=== PATIENT | male | born 1950 | race Caucasian/White ===

== ENCOUNTER → 2016-11-28 | Outpatient (CLI) | payer MEDICARE ==
[2016-05-15 15:00] VITALS: BP 111/55
[~2016-11-28] MED LIST: ASPI325T4 PO; ASPI81TA2 PO; ATOR20TA58 PO; CLOP75TA PO; FURO-68 PO; FURO40TA4 PO; LEVO500T8 PO; LEVO750T31 PO; LISI2.5T PO; METO25TA9 PO; ONDA8TAB9 PO; OXYC-323 PO; POTA20TA4 PO
--- NOTE | 2016-11-28 14:11 | CARD ---
APPROVED REPORT EXAM: Two-dimensional and M-mode echocardiogram with Doppler and color Doppler. Other Information Quality : Average Rhythm : NSR INDICATION Cardiomyopathy 2D DIMENSIONS RVDd2.0 (2.9-3.5cm)Left Atrium(2D)3.7 (1.6-4.0cm) IVSd0.9 (0.7-1.1cm)Aortic Root(2D)3.0 (2.0-3.7cm) LVDd5.9 (3.9-5.9cm)LVOT Diameter2.0 (1.8-2.4cm) PWd0.9 (0.7-1.1cm)LVDs5.3 (2.5-4.0cm) FS (%) 9.1 %SV33.8 ml LVEF(%)19.8 (>50%) Aortic Valve AoV Peak Luc.126.0cm/sAoV VTI29.4cm AO Peak GR.6.4mmHgLVOT Peak Luc.76.9cm/s AO Mean GR.3mmHgAVA (VMAX)1.86cm2 ARCADIO (VTI)1.90cm2 Mitral Valve MV E Bllvucsy65.9cm/sMV E Peak Gr.4mmHg MV DECEL [id number] A Dspcwqtr21.7cm/s MV E Mean Gr.2mmHgMV [id number] E/A Ratio1.3MV A Nppmrhsc342bj MVA (PHT)3.15cm2 Tricuspid Valve TR P. Zkdhtlmi759kx/sRAP JIQUCPFE0oqQc TR Peak Gr.98wiFoNTTR53rkHd Pulmonary Vein S1 Mbwmpfqw90.1cm/sD2 Ihctqyvc67.0cm/s LEFT VENTRICLE The left ventricle is normal size. There is normal left ventricular wall thickness. Left ventricle sy stolic function is severely impaired. The Ejection Fraction is 20%. There is global hypokinesis of th e left ventricle with severe hypokinesis to akinesis of the inferior and lateral box. Tissue Dopple r imaging reveals moderate left ventricular diastolic dysfunction. RIGHT VENTRICLE The right ventricle is normal size. The right ventricular systolic function is normal. ATRIA The left atrium size is normal. The right atrium size is normal. The interatrial septum is intact wit h no evidence for an atrial septal defect or patent foramen ovale as noted on 2-D or Doppler imaging. AORTIC VALVE The aortic valve is normal in structure and function. The aortic valve is trileaflet. Doppler and Col or Flow revealed no significant aortic regurgitation. There is no significant aortic valvular stenosi s. MITRAL VALVE The mitral valve leaflets are thickened. There is no mitral valve stenosis. Doppler and Color Flow re vealed mild mitral regurgitation. TRICUSPID VALVE The tricuspid valve is normal in structure and function. Doppler and Color Flow revealed mild tricusp id regurgitation. The PA pressure was estimated at 26 mmHg. There is no tricuspid valve stenosis. PULMONIC VALVE The pulmonic valve is not well visualized. Doppler and Color Flow revealed no pulmonic valvular regur gitation. There is no pulmonic valvular stenosis. GREAT VESSELS The aortic root is normal in size. Normal pulmonary venous flow (Doppler). The IVC is normal in size and collapses >50% with inspiration. PERICARDIAL EFFUSION There is no evidence of significant pericardial effusion. Critical Notification Critical Value: No <Conclusion> Left ventricle systolic function is severely impaired. The Ejection Fraction is 20%. There is global hypokinesis of the left ventricle with severe hypokinesis to akinesis of the inferior and lateral box.
== END | disposition home or self-care (01) ==
LOC: ECHO 09:26
PROVIDERS: ATTEND Internal Medicine Cardiovascular Disease
DX: I25.5 Ischemic cardiomyopathy (principal); I34.0 Nonrheumatic mitral (valve) insufficiency; I07.1 Rheumatic tricuspid insufficiency
CPT/HCPCS: 93306

== ENCOUNTER → 2016-11-28 | Outpatient (CLI) | payer MEDICARE ==
[2016-05-15 15:00] VITALS: BP 111/55
[~2016-11-28] MED LIST changes: +CONTRAST GIVEN MC PRN; +HEPARIN PF 500 UNIT/5 ML DISP.SYRIN. IV ONE; +HEPARIN for IV BOLUS 10,000 UNIT/10 ML VIAL. IV ONE; +IOHEXOL 240 MG/ML 50ML VIAL. PO ONE; +IOHEXOL 300 MG/ML 75 ML VIAL IV ONE
--- NOTE | 2016-11-28 14:48 | RAD ---
Indication: Rectal cancer, follow-up. Technique: Axial images and coronal and sagittal reformatted images are provided. Oral contrast and 75 mL of intravenous Omnipaque 300 was administered without complication. Comparison is from August 04, 2016. One or more of the following individualized dose reduction techniques were utilized for this examination: 1. Automated exposure control 2. Adjustment of the mA and/or kV according to patient size 3. Use of iterative reconstruction technique Findings: Chest: Right 2 mm intrafissural lymph node is noted. No worrisome or enlarging pulmonary nodule is identified. There is linear atelectasis. Right lower lobe groundglass nodularity following the bronchovascular bundle has resolved. There is no pleural effusion. Central airways are patent. There is atheromatous disease in the thoracic aorta without aneurysm. Coronary artery calcifications are noted. There is no hilar or mediastinal adenopathy. There are calcified left hilar lymph nodes. There is a subcarinal lymph node measuring 14 x 7 mm, stable. There are coronary artery calcifications. There are minimal degenerative changes in the thoracic spine. There is again gynecomastia. Abdomen: There is fatty infiltration of the liver without worrisome lesion. There is cholelithiasis. There are benign calcifications in the spleen. Pancreas is unremarkable. Left adrenal nodule is stable. There is atheromatous disease in the abdominal aorta without aneurysm. There is new dilation of the right renal collecting system to the level of the presacral process. There is slight delay in nephrographic phase on the right. There is no small bowel obstruction or mural thickening. Left lower quadrant colostomy is noted. No mesenteric or retroperitoneal adenopathy is apparent. Pelvis: Presacral mass has increased by at least a half centimeter in each dimension, 8.6 x 6.9 x 10.4 cm compared to 8.1 x 6.1 x 9.6 cm on prior, my measurements on each study at the same level in the same plane. Bladder wall is thickened. No definite adenopathy is apparent. There is irregularity of the anterior wall of the sacrum, could be benign remodeling or posttreatment change, although direct invasion is not excluded. No distant skeletal metastasis is apparent. Impression: Chest: 1. No evidence of metastatic disease. Abdomen/pelvis: 1. Slight increase in size of the presacral mass. 2. With this increase in size of the presacral mass, the right ureter is now at least partially obstructed.
== END | disposition home or self-care (01) ==
LOC: CT 09:33
PROVIDERS: ATTEND Internal Medicine Hematology & Oncology
DX: C20 Malignant neoplasm of rectum (principal)
CPT/HCPCS: 71260; 74177; Q9966; Q9967

== ENCOUNTER → 2017-03-21 | Outpatient (CLI) | payer MEDICARE ==
[2016-05-15 15:00] VITALS: BP 111/55
[~2017-03-21] MED LIST changes: +ASPI-630 PO; -ASPI325T4 PO; +ASPI325T8 PO; -ASPI81TA2 PO; -HEPARIN PF 500 UNIT/5 ML DISP.SYRIN. IV ONE; -HEPARIN for IV BOLUS 10,000 UNIT/10 ML VIAL. IV ONE
--- NOTE | 2017-03-21 16:11 | RAD ---
CT of the chest, abdomen and pelvis with contrast, 03/21/2017: History: Restaging colon cancer Multidetector CT imaging was performed following oral and IV administration of contrast. Comparison is made to a study from 11/28/2016. No pulmonary mass or significant infiltrate is seen. There is no evidence of pleural fluid. Several small mediastinal lymph nodes are seen without evidence of pathologic enlargement. These include a node between the innominate and proximal left common carotid artery measuring 8 mm in short axis dimension. It is unchanged since 08/04/2016. No hepatic abnormality is detected. Multiple gallstones are again noted in the gallbladder. There is no evidence of gallbladder inflammation. The pancreas is unremarkable. The spleen is of normal size. There is moderate right-sided hydronephrosis which appears to have increased slightly. The right ureter is mildly dilated down to the level of the patient's known pelvic mass. There is no evidence of ureteral obstruction on the left. There is moderate aortoiliac calcific plaquing. No periaortic or mesenteric adenopathy is seen. The large heterogeneous presacral mass is again identified. This is compatible with residual, recurrent colonic malignancy. On coronal image 33 of series #8 it measures 11.2 cm in craniocaudad extent compared to a measurement of 10.9 on the previous study. It measures 9.1 cm in width compared to a measurement of 8.5 cm on the previous study. Its AP dimension as measured on image 66 of series #4 is 9.8 cm, compared to a measurement of 9.3 cm at the same level on the previous study. There is a small nodular opacity along the posterior wall of the urinary bladder just to the right of midline as seen on image 66 of series #4. The appearance raises the possibility of tumor extension into the bladder wall. A colostomy is present in the left lower quadrant. The bowel loops are not dilated. No free fluid is evident in the abdomen or pelvis. IMPRESSION: 1. Slight interval increase in size of the large presacral mass since 11/28/2016. There is a suggestion of direct extension into the posterior bladder wall. 2. Right-sided hydronephrosis and hydroureter have progressed slightly. 3. Cholelithiasis. 4. No CT evidence of metastatic disease in the chest. PQRS Compliance Statement: One or more of the following individualized dose reduction techniques were utilized for this examination: 1. Automated exposure control 2. Adjustment of the mA and/or kV according to patient size 3. Use of iterative reconstruction technique
== END | disposition home or self-care (01) ==
LOC: CT 09:09
PROVIDERS: ATTEND Internal Medicine Hematology & Oncology
DX: C18.9 Malignant neoplasm of colon, unspecified (principal); N13.30 Unspecified hydronephrosis; K80.20 Calculus of gallbladder without cholecystitis without obstruction; N28.82 Megaloureter; M53.3 Sacrococcygeal disorders, not elsewhere classified; I70.0 Atherosclerosis of aorta; Z93.3 Colostomy status
CPT/HCPCS: 71260; 74177; Q9966; Q9967

== ENCOUNTER → 2017-06-25 | Outpatient (CLI) | payer MEDICARE ==
[2016-05-15 15:00] VITALS: BP 111/55
[~2017-06-25] MED LIST changes: +METO-239 PO; -METO25TA9 PO
--- NOTE | 2017-06-25 12:23 | RAD ---
Indication restaging colon malignancy. Axial images through the chest abdomen and pelvis were obtained. Both oral and IV contrast were administered. Approximately 75 cc of Omnipaque 300 was administered intravenously. Comparison is made to similar examination 03/21/2017. CT chest: Findings No acute parenchymal infiltrate is seen. The thoracic aorta is unremarkable. There is moderately extensive coronary artery calcification. There are few mediastinal lymph nodes similar to the previous exam. Definite pathologic mediastinal or hilar adenopathy is not seen. There is no evidence of metastatic disease to the chest. CT abdomen and pelvis: Findings Known pelvic, presacral, soft tissue mass persists and appears somewhat larger. The mass measures 11 x 7.5 x 9.6 cm whereas corresponding measurements on the previous examination were 10 x 7 x 8.4. The mass causes bilateral hydronephrosis and hydroureter which also has progressed relative to the previous exam. The liver and spleen appear unremarkable. Cholelithiasis is noted. There is a left adrenal mass measuring approximately 2 cm similar to the previous examination compatible with an adenoma. (It is also similar to a study 08/04/2016). The pancreas appears unremarkable. Colostomy is noted. IMPRESSION: Known presacral soft tissue mass has increased in size relative to the previous exam the mass. The mass causes bilateral hydronephrosis which too appears somewhat worse than previously. No evidence of metastatic disease to the chest. PQRS Compliance Statement: One or more of the following individualized dose reduction techniques were utilized for this examination: 1. Automated exposure control 2. Adjustment of the mA and/or kV according to patient size 3. Use of iterative reconstruction technique
== END | disposition home or self-care (01) ==
LOC: CT 08:41
PROVIDERS: ATTEND Internal Medicine Hematology & Oncology
DX: C18.9 Malignant neoplasm of colon, unspecified (principal); N13.30 Unspecified hydronephrosis; K80.20 Calculus of gallbladder without cholecystitis without obstruction; I10 Essential (primary) hypertension; I25.10 Atherosclerotic heart disease of native coronary artery without angina pectoris; Z79.01 Long term (current) use of anticoagulants
CPT/HCPCS: 71260; 74177; Q9966; Q9967

== ENCOUNTER → 2017-10-12 | Outpatient (CLI) | payer MEDICARE ==
[2017-10-12] MEDS: IOHEXOL 240 MG/ML 50ML VIAL. PO (11:30)
== END | disposition home or self-care (01) ==
LOC: CT 11:19
DX: C20 Malignant neoplasm of rectum (principal); I25.10 Atherosclerotic heart disease of native coronary artery without angina pectoris; N13.30 Unspecified hydronephrosis; Z93.3 Colostomy status; R19.00 Intra-abdominal and pelvic swelling, mass and lump, unspecified site
CPT/HCPCS: 71250; 74176; Q9966

== ENCOUNTER 2017-10-29 15:31 | Inpatient (IN) | payer MEDICARE ==
[2017-10-29 17:00] LABS: ADD MAN DIFF? NO
[2017-10-29 17:11] LABS: BASO % 0 % (0-3); EOS % 1 % (0-3); HEMATOCRIT 28.2 % (39.0-53.0); HEMOGLOBIN 9.1 g/dL (13.0-17.5); LYMPH % 29 % (24-48); MEAN CORPUSCULAR HEMOGLOBIN 28 pg (25-35); MEAN CORPUSCULAR HGB CONC 32 g/dL (31-37); MEAN CORPUSCULAR VOLUME 87 fL (79-100); MONO # 0.3 x10^3/uL (0.0-1.1); MONO % 8 % (0-9); NEUT # 2.1 x10^3uL (1.8-7.7); NEUT % 62 % (31-73); PLATELET COUNT 116 x10^3/uL (140-400); RED BLOOD COUNT 3.25 x10^6/uL (4.30-5.70); RED CELL DISTRIBUTION WIDTH 16.4 % (11.5-14.5); WHITE BLOOD COUNT 3.3 x10^3/uL (4.0-11.0)
[2017-10-29] MEDS: IV NORMAL SALINE 1000ML BAG 1,000 ML IV ×2 (17:11→21:39)
[2017-10-29 17:24] LABS: ALBUMIN 2.9 g/dL (3.4-5.0); ALBUMIN/GLOBULIN RATIO 0.6 (1.0-1.7); ALK PHOS 103 U/L (46-116); ALT (SGPT) 8 U/L (16-63); ANION GAP 14 (6-14); AST (SGOT) 28 U/L (15-37); BLOOD UREA NITROGEN 14 mg/dL (8-26); BUN/CREATININE RATIO 9 (6-20); CARBON DIOXIDE 22 mmol/L (21-32); CHLORIDE 103 mmol/L (98-107); CREATININE 1.5 mg/dL (0.7-1.3); GLUCOSE 95 mg/dL (70-99); MAGNESIUM 0.6 mg/dL (1.8-2.4); POTASSIUM 4.5 mmol/L (3.5-5.1); SODIUM 139 mmol/L (136-145); TOTAL BILIRUBIN 0.2 mg/dL (0.2-1.0); TOTAL PROTEIN 7.5 g/dL (6.4-8.2)
[2017-10-29 17:48] LABS: CALCIUM 5.6 mg/dL (8.5-10.1)
[2017-10-29] MEDS ORDERED: CALCIUM GLUCONATE 100 MG/ML VIAL for DOSE IN MG. IVP (19:15)
[2017-10-29] MEDS: CALCIUM GLUCONATE 1,000 MG/10 ML VIAL. IV (19:32)
[2017-10-29] MEDS: MAGNESIUM SULFATE 4GM 100 ML IV (19:33)
[2017-10-29] MEDS ORDERED: ACETAMINOPHEN 325 MG TABLET. PO (20:00)
[2017-10-29] MEDS ORDERED: ONDANSETRON PF 4 MG/2 ML VIAL. IV ×2 (20:00→20:45)
[2017-10-29] MEDS ORDERED: MORPHINE SULFATE 2 MG/ML DISP.SYRIN. IV (20:45)
[2017-10-29] MEDS ORDERED: traMADol 50 MG TABLET PO (20:45)
[2017-10-29] MEDS ORDERED: hydrALAZINE 20 MG/ML VIAL. IVP (20:45)
[2017-10-29] MEDS ORDERED: DOCUSATE SODIUM 100 MG CAPSULE. PO (20:45)
[2017-10-29 21:07] LABS: PHOSPHORUS 2.9 mg/dL (2.6-4.7)
[2017-10-29] MEDS: ENOXAPARIN 40 MG/0.4 ML SYRINGE. SQ (21:39)
[2017-10-29] MEDS: CALCIUM CHLORIDE 1,000 MG in IV DEXTROSE 5% 50 ML IV (21:39)
[2017-10-30] MEDS: IV NORMAL SALINE 1000ML BAG 1,000 ML IV ×2 (03:56→08:33)
[2017-10-30 05:53] LABS: ADD MAN DIFF? NO
[2017-10-30 06:07] LABS: BASO % 0 % (0-3); EOS % 1 % (0-3); HEMATOCRIT 26.9 % (39.0-53.0); HEMOGLOBIN 8.6 g/dL (13.0-17.5); LYMPH # 1.1 x10^3/uL (1.0-4.8); LYMPH % 34 % (24-48); MEAN CORPUSCULAR HEMOGLOBIN 28 pg (25-35); MEAN CORPUSCULAR HGB CONC 32 g/dL (31-37); MEAN CORPUSCULAR VOLUME 87 fL (79-100); MONO # 0.3 x10^3/uL (0.0-1.1); MONO % 9 % (0-9); NEUT # 1.7 x10^3uL (1.8-7.7); NEUT % 56 % (31-73); PLATELET COUNT 77 x10^3/uL (140-400); RED BLOOD COUNT 3.09 x10^6/uL (4.30-5.70); RED CELL DISTRIBUTION WIDTH 16.1 % (11.5-14.5); WHITE BLOOD COUNT 3.1 x10^3/uL (4.0-11.0)
[2017-10-30 06:29] LABS: ANION GAP 11 (6-14); BLOOD UREA NITROGEN 14 mg/dL (8-26); CALCIUM 6.5 mg/dL (8.5-10.1); CARBON DIOXIDE 21 mmol/L (21-32); CHLORIDE 108 mmol/L (98-107); CREATININE 1.5 mg/dL (0.7-1.3); GLUCOSE 86 mg/dL (70-99); MAGNESIUM 1.3 mg/dL (1.8-2.4); SODIUM 140 mmol/L (136-145)
[2017-10-30 06:32] LABS: POTASSIUM 5.7 mmol/L (3.5-5.1)
[2017-10-30] MEDS: POTASSIUM CHLORIDE 20 MEQ TABLET.ER. PO (08:00)
[2017-10-30] MEDS: LISINOPRIL 2.5 MG TABLET PO (08:26)
[2017-10-30] MEDS: CLOPIDOGREL BISULFATE 75 MG TABLET PO (08:27)
[2017-10-30] MEDS: ATORVASTATIN CALCIUM 20 MG TABLET PO (08:27)
[2017-10-30] MEDS: ASPIRIN 325 MG TABLET PO (08:27)
[2017-10-30] MEDS: FUROSEMIDE 40 MG TABLET. PO (08:28)
[2017-10-30] MEDS: FLU VACC QS2017-18 (36MOS+)/PF 0.5 ML SYRINGE. VAX IM (08:31)
[2017-10-30] MEDS: METOPROLOL SUCC 24HR ER 25 MG TAB.ER.24H. PO (08:36)
[2017-10-30] MEDS ORDERED: INFLUENZA VAX SCREEN BY RX. MC (09:00)
[2017-10-30] MEDS: MAGNESIUM SULFATE 2GM 50 ML IV (13:09)
[2017-10-30] MEDS: CALCIUM CHLORIDE 1,000 MG in IV DEXTROSE 5% 50 ML IV (15:15)
[2017-10-30] MEDS: ACETAMINOPHEN 325 MG TABLET. PO (16:08)
[2017-10-30] MEDS: ENOXAPARIN 40 MG/0.4 ML SYRINGE. SQ (20:53)
[2017-10-31 05:25] LABS: ADD MAN DIFF? NO
[2017-10-31 05:35] LABS: BASO % 0 % (0-3); EOS # 0.1 x10^3/uL (0.0-0.7); EOS % 2 % (0-3); HEMATOCRIT 28.5 % (39.0-53.0); HEMOGLOBIN 9.1 g/dL (13.0-17.5); LYMPH # 0.9 x10^3/uL (1.0-4.8); LYMPH % 29 % (24-48); MEAN CORPUSCULAR HEMOGLOBIN 28 pg (25-35); MEAN CORPUSCULAR HGB CONC 32 g/dL (31-37); MEAN CORPUSCULAR VOLUME 87 fL (79-100); MONO # 0.2 x10^3/uL (0.0-1.1); MONO % 8 % (0-9); NEUT # 1.8 x10^3uL (1.8-7.7); NEUT % 61 % (31-73); PLATELET COUNT 98 x10^3/uL (140-400); RED BLOOD COUNT 3.28 x10^6/uL (4.30-5.70); RED CELL DISTRIBUTION WIDTH 16.2 % (11.5-14.5); WHITE BLOOD COUNT 2.9 x10^3/uL (4.0-11.0)
[2017-10-31 06:17] LABS: MAGNESIUM 1.3 mg/dL (1.8-2.4)
[2017-10-31] MEDS: FUROSEMIDE 40 MG TABLET. PO (08:35)
[2017-10-31] MEDS: ATORVASTATIN CALCIUM 20 MG TABLET PO (08:36)
[2017-10-31] MEDS: METOPROLOL SUCC 24HR ER 25 MG TAB.ER.24H. PO ×2 (08:36→12:35)
[2017-10-31] MEDS: ASPIRIN 325 MG TABLET PO (08:36)
[2017-10-31] MEDS: CLOPIDOGREL BISULFATE 75 MG TABLET PO (08:36)
[2017-10-31] MEDS: LISINOPRIL 2.5 MG TABLET PO (08:36)
[2017-10-31 10:46] LABS: ANION GAP 14 (6-14); BLOOD UREA NITROGEN 15 mg/dL (8-26); CALCIUM 6.7 mg/dL (8.5-10.1); CARBON DIOXIDE 22 mmol/L (21-32); CHLORIDE 106 mmol/L (98-107); CREATININE 1.4 mg/dL (0.7-1.3); GFR 50.9; GLUCOSE 92 mg/dL (70-99); POTASSIUM 4.6 mmol/L (3.5-5.1); SODIUM 142 mmol/L (136-145)
[2017-10-31] MEDS: ASPIRIN ENTERIC COATED 81 MG TABLET.DR. PO (12:35)
[2017-10-31] MEDS: MAGNESIUM SULFATE 2GM 50 ML IV (12:42)
[2017-10-31] MEDS: CALCIUM CHLORIDE 1,000 MG in IV DEXTROSE 5% 50 ML IV (15:35)
[2017-10-31] MEDS: ENOXAPARIN 40 MG/0.4 ML SYRINGE. SQ (20:49)
[2017-11-01 05:07] LABS: ADD MAN DIFF? NO
[2017-11-01 05:27] LABS: BASO % 0 % (0-3); EOS % 1 % (0-3); HEMATOCRIT 26.9 % (39.0-53.0); HEMOGLOBIN 8.7 g/dL (13.0-17.5); LYMPH # 0.8 x10^3/uL (1.0-4.8); LYMPH % 21 % (24-48); MEAN CORPUSCULAR HEMOGLOBIN 28 pg (25-35); MEAN CORPUSCULAR HGB CONC 32 g/dL (31-37); MEAN CORPUSCULAR VOLUME 85 fL (79-100); MONO # 0.3 x10^3/uL (0.0-1.1); MONO % 8 % (0-9); NEUT # 2.6 x10^3uL (1.8-7.7); NEUT % 70 % (31-73); PLATELET COUNT 99 x10^3/uL (140-400); RED BLOOD COUNT 3.15 x10^6/uL (4.30-5.70); RED CELL DISTRIBUTION WIDTH 16.2 % (11.5-14.5); WHITE BLOOD COUNT 3.7 x10^3/uL (4.0-11.0)
[2017-11-01 05:49] LABS: ANION GAP 13 (6-14); BLOOD UREA NITROGEN 13 mg/dL (8-26); CALCIUM 7.2 mg/dL (8.5-10.1); CARBON DIOXIDE 22 mmol/L (21-32); CHLORIDE 106 mmol/L (98-107); CREATININE 1.3 mg/dL (0.7-1.3); GFR 55.4; GLUCOSE 108 mg/dL (70-99); MAGNESIUM 1.2 mg/dL (1.8-2.4); POTASSIUM 3.9 mmol/L (3.5-5.1); SODIUM 141 mmol/L (136-145)
== END 2017-11-01 10:51 | disposition home or self-care (01) | DRG 640 ==
LOC: ER 15:31 → 6 SOUTH 19:02
DX: E83.51 Hypocalcemia (principal); D61.810 Antineoplastic chemotherapy induced pancytopenia; E44.0 Moderate protein-calorie malnutrition; N13.30 Unspecified hydronephrosis; I13.0 Hypertensive heart and chronic kidney disease with heart failure and stage 1 through stage 4 chronic kidney disease, or unspecified chronic kidney disease; I50.9 Heart failure, unspecified; N18.3 Chronic kidney disease, stage 3 (moderate); G62.9 Polyneuropathy, unspecified; C20 Malignant neoplasm of rectum; E83.42 Hypomagnesemia; I25.5 Ischemic cardiomyopathy; F41.9 Anxiety disorder, unspecified; F32.9 Major depressive disorder, single episode, unspecified; I25.10 Atherosclerotic heart disease of native coronary artery without angina pectoris; E78.5 Hyperlipidemia, unspecified; E87.5 Hyperkalemia; T45.1X5A Adverse effect of antineoplastic and immunosuppressive drugs, initial encounter; I25.2 Old myocardial infarction; Z90.49 Acquired absence of other specified parts of digestive tract; Z87.891 Personal history of nicotine dependence; Z88.0 Allergy status to penicillin; Z88.8 Allergy status to other drugs, medicaments and biological substances; Z93.3 Colostomy status; Z95.5 Presence of coronary angioplasty implant and graft; Y92.89 Other specified places as the place of occurrence of the external cause; Z68.21 Body mass index [BMI] 21.0-21.9, adult
CPT/HCPCS: 36415; 80048; 80053; 83735; 84100; 85025; 90686; 93005; 93306; 96361; 96365; 96375; 97110-GP; 97161-GP; 99285; 99285-25; J0610; J1650; J3475; J7030

== ENCOUNTER 2018-01-07 11:43 | Inpatient (IN) | payer MEDICARE ==
[2018-01-07] MEDS ORDERED: IV NORMAL SALINE 1000ML BAG 1,000 ML IV (12:38)
[2018-01-07 13:13] LABS: ADD MAN DIFF? NO
[2018-01-07] MEDS: IV NORMAL SALINE 1000ML BAG 1,000 ML IV ×3 (13:18→21:08)
[2018-01-07 13:19] LABS: BASO % 0 % (0-3); EOS # 0.2 x10^3/uL (0.0-0.7); EOS % 2 % (0-3); LYMPH # 1.2 x10^3/uL (1.0-4.8); LYMPH % 13 % (24-48); MEAN CORPUSCULAR HEMOGLOBIN 30 pg (25-35); MEAN CORPUSCULAR HGB CONC 34 g/dL (31-37); MEAN CORPUSCULAR VOLUME 87 fL (79-100); MONO # 0.6 x10^3/uL (0.0-1.1); MONO % 7 % (0-9); NEUT # 7.3 x10^3uL (1.8-7.7); NEUT % 78 % (31-73); PLATELET COUNT 510 x10^3/uL (140-400); RED BLOOD COUNT 2.32 x10^6/uL (4.30-5.70); RED CELL DISTRIBUTION WIDTH 15.8 % (11.5-14.5); WHITE BLOOD COUNT 9.3 x10^3/uL (4.0-11.0)
[2018-01-07 13:24] LABS: HEMOGLOBIN 6.8 g/dL (13.0-17.5)
[2018-01-07 13:25] LABS: ANION GAP 10 (6-14); BLOOD UREA NITROGEN 16 mg/dL (8-26); BUN/CREATININE RATIO 8 (6-20); CALCIUM 8.7 mg/dL (8.5-10.1); CARBON DIOXIDE 31 mmol/L (21-32); CHLORIDE 100 mmol/L (98-107); CREATININE 1.9 mg/dL (0.7-1.3); GFR 35.8; GLUCOSE 115 mg/dL (70-99); HEMATOCRIT 20.2 % (39.0-53.0); POTASSIUM 3.7 mmol/L (3.5-5.1); SODIUM 141 mmol/L (136-145)
[2018-01-07 13:31] LABS: ALBUMIN 2.7 g/dL (3.4-5.0); ALBUMIN/GLOBULIN RATIO 0.6 (1.0-1.7); ALK PHOS 124 U/L (46-116); ALT (SGPT) 16 U/L (16-63); AST (SGOT) 27 U/L (15-37); TOTAL BILIRUBIN 0.4 mg/dL (0.2-1.0); TOTAL PROTEIN 6.9 g/dL (6.4-8.2)
[2018-01-07 13:32] LABS: TROPONINI < 0.017 ng/mL (0.000-0.055)
[2018-01-07 13:37] LABS: INR 1.3 (0.8-1.1)
[2018-01-07 13:38] LABS: PARTIAL THROMBOPLASTIN TIME 46 SEC (24-38)
[2018-01-07 13:39] LABS: THYROID STIM HORMONE (TSH) 0.906 uIU/mL (0.358-3.74)
[2018-01-07 13:42] LABS: CLARITY,URINE TURBID; COLOR,URINE RED; GLUCOSE,URINE NEGATIVE (NEG); PH,URINE 5.5; PROTEIN,URINE >=300 mg/dL (NEG-TRACE)
[2018-01-07 13:53] LABS: BILIRUBIN,URINE NEGATIVE (NEG); NITRITE,URINE NEGATIVE (NEG); UROBILINOGEN,URINE 0.2 mg/dL (0.2 mg/dL)
[2018-01-07 14:03] LABS: BACTERIA,URINE FEW /HPF (0-FEW); RBC,URINE TNTC /HPF (0-2); WBC,URINE 20-40 /HPF (0-4)
[2018-01-07 21:22] LABS: IMMEDIATE SPIN CROSSMATCH 1 1
[2018-01-08] MEDS: IV NORMAL SALINE 1000ML BAG 1,000 ML IV (05:08)
[2018-01-08 05:12] LABS: ADD MAN DIFF? NO
[2018-01-08 05:18] LABS: BASO % 0 % (0-3); EOS # 0.2 x10^3/uL (0.0-0.7); EOS % 3 % (0-3); HEMATOCRIT 21.3 % (39.0-53.0); HEMOGLOBIN 7.1 g/dL (13.0-17.5); LYMPH # 1.1 x10^3/uL (1.0-4.8); LYMPH % 12 % (24-48); MEAN CORPUSCULAR HEMOGLOBIN 29 pg (25-35); MEAN CORPUSCULAR HGB CONC 34 g/dL (31-37); MEAN CORPUSCULAR VOLUME 87 fL (79-100); MONO # 0.6 x10^3/uL (0.0-1.1); MONO % 7 % (0-9); NEUT # 7.1 x10^3uL (1.8-7.7); NEUT % 78 % (31-73); PLATELET COUNT 394 x10^3/uL (140-400); RED BLOOD COUNT 2.43 x10^6/uL (4.30-5.70); RED CELL DISTRIBUTION WIDTH 15.2 % (11.5-14.5); WHITE BLOOD COUNT 9.1 x10^3/uL (4.0-11.0)
[2018-01-08 05:42] LABS: ANION GAP 6 (6-14); BLOOD UREA NITROGEN 16 mg/dL (8-26); CALCIUM 8.3 mg/dL (8.5-10.1); CARBON DIOXIDE 29 mmol/L (21-32); CHLORIDE 104 mmol/L (98-107); CREATININE 1.8 mg/dL (0.7-1.3); GFR 38.1; GLUCOSE 95 mg/dL (70-99); POTASSIUM 3.7 mmol/L (3.5-5.1); SODIUM 139 mmol/L (136-145)
[2018-01-08] MEDS: GABAPENTIN 300 MG CAPSULE. PO ×3 (07:47→21:13)
[2018-01-08] MEDS: MAGNESIUM OXIDE 400 MG TABLET PO (10:00)
[2018-01-08] MEDS: ATORVASTATIN CALCIUM 20 MG TABLET PO (10:00)
[2018-01-08] MEDS: METOPROLOL SUCC 24HR ER 25 MG TAB.ER.24H. PO (10:00)
[2018-01-08] MEDS: ONDANSETRON ODT 4 MG TAB.RAPDIS. PO ×3 (10:00→21:14)
[2018-01-08] MEDS ORDERED: LIDOCAINE 2% JELLY 6ML IN APPLICATOR. (14:02)
[2018-01-08] MEDS ORDERED: LIDOCAINE 2% PF Vial for OR 5 ML VIAL. (14:24)
[2018-01-08] MEDS ORDERED: ONDANSETRON PF 4 MG/2 ML VIAL. (14:24)
[2018-01-08] MEDS ORDERED: FAMOTIDINE 20 MG/2 ML VIAL (14:24)
[2018-01-08] MEDS ORDERED: PROPOFOL 20 ML IV (14:24)
[2018-01-08] MEDS ORDERED: MIDAZOLAM HCL/PF 2 MG/2 ML VIAL. (14:24)
[2018-01-08] MEDS ORDERED: fentaNYL PF VIAL 100 MCG/2 ML VIAL ×3 (14:24→17:06)
[2018-01-08] MEDS ORDERED: DEXAMETHASONE SOD PHOS 20 MG/5 ML VIAL. (14:24)
[2018-01-08] MEDS ORDERED: PHENYLEPHRINE in 0.9% NACL PF 1 MG/10 ML SYRINGE. IV (15:25)
[2018-01-08] MEDS ORDERED: SEVOFLURANE 61 TO 120 MINUTES. IH (16:37)
[2018-01-08] MEDS: IV RINGERS,LACTATED 1000ML 1,000 ML IV (17:06)
[2018-01-08] MEDS: fentaNYL PF VIAL 100 MCG/2 ML VIAL IV (17:12)
[2018-01-08] MEDS: LIDOCAINE 2% JELLY 6ML IN APPLICATOR. (17:14)
[2018-01-08] MEDS ORDERED: HYDROmorphone 2 MG/ML VIAL IV (17:15)
[2018-01-08] MEDS ORDERED: LIDOCAINE 1% PF 2 ML VIAL. ID (17:15)
[2018-01-08] MEDS ORDERED: fentaNYL PF VIAL 100 MCG/2 ML VIAL IV (17:15)
[2018-01-08] MEDS ORDERED: MORPHINE SULFATE 4 MG/ML DISP.SYRIN. IV (17:15)
[2018-01-08] MEDS ORDERED: PROCHLORPERAZINE 10 MG/2 ML VIAL. IV (17:15)
[2018-01-08] MEDS: IOHEXOL 240 MG/ML 50ML VIAL. IT (18:00)
[2018-01-08] MEDS: OXYBUTYNIN CHLORIDE 5 MG TABLET PO (18:42)
[2018-01-08] MEDS: ACETAMINOPHEN 500 MG TABLET PO (21:14)
[2018-01-08 23:13] LABS: C DIFF BY PCR Negative (Negative)
[2018-01-09] MEDS: OXYBUTYNIN CHLORIDE 5 MG TABLET PO (05:00)
[2018-01-09] MEDS: ONDANSETRON ODT 4 MG TAB.RAPDIS. PO ×3 (05:00→22:09)
[2018-01-09 05:33] LABS: HEMATOCRIT 23.2 % (39.0-53.0); HEMOGLOBIN 7.8 g/dL (13.0-17.5); MEAN CORPUSCULAR HEMOGLOBIN 30 pg (25-35); MEAN CORPUSCULAR HGB CONC 34 g/dL (31-37); MEAN CORPUSCULAR VOLUME 88 fL (79-100); PLATELET COUNT 399 x10^3/uL (140-400); RED BLOOD COUNT 2.62 x10^6/uL (4.30-5.70); WHITE BLOOD COUNT 11.3 x10^3/uL (4.0-11.0)
[2018-01-09 06:58] LABS: ALBUMIN 2.1 g/dL (3.4-5.0); ALBUMIN/GLOBULIN RATIO 0.5 (1.0-1.7); ALK PHOS 100 U/L (46-116); ALT (SGPT) 12 U/L (16-63); ANION GAP 12 (6-14); AST (SGOT) 22 U/L (15-37); BLOOD UREA NITROGEN 17 mg/dL (8-26); BUN/CREATININE RATIO 9 (6-20); CALCIUM 8.3 mg/dL (8.5-10.1); CARBON DIOXIDE 25 mmol/L (21-32); CHLORIDE 105 mmol/L (98-107); CREATININE 1.9 mg/dL (0.7-1.3); GFR 35.8; GLUCOSE 119 mg/dL (70-99); SODIUM 142 mmol/L (136-145); TOTAL BILIRUBIN 0.4 mg/dL (0.2-1.0); TOTAL PROTEIN 6.4 g/dL (6.4-8.2)
[2018-01-09] MEDS: ATORVASTATIN CALCIUM 20 MG TABLET PO (08:32)
[2018-01-09] MEDS: MAGNESIUM OXIDE 400 MG TABLET PO (08:32)
[2018-01-09] MEDS: METOPROLOL SUCC 24HR ER 25 MG TAB.ER.24H. PO (08:32)
[2018-01-09] MEDS: GABAPENTIN 300 MG CAPSULE. PO ×3 (08:32→21:00)
[2018-01-09] MEDS ORDERED: IOHEXOL 300 MG/ML 100ML VIAL. (12:50)
[2018-01-09] MEDS ORDERED: LIDOCAINE WITH 8.4% SOD BICARB 3 ML DISP.SYRIN. ×2 (12:50)
[2018-01-09] MEDS ORDERED: MIDAZOLAM HCL/PF 2 MG/2 ML VIAL. (13:27)
[2018-01-09] MEDS ORDERED: fentaNYL PF VIAL 100 MCG/2 ML VIAL (13:27)
[2018-01-09] MEDS: IOHEXOL 300 MG/ML 100ML VIAL. IART (14:17)
[2018-01-09] MEDS: LIDOCAINE WITH 8.4% SOD BICARB 3 ML DISP.SYRIN. IJ (14:17)
[2018-01-09] MEDS: fentaNYL PF VIAL 100 MCG/2 ML VIAL IV (14:18)
[2018-01-09] MEDS: MIDAZOLAM HCL/PF 2 MG/2 ML VIAL. IV (14:18)
[2018-01-09] MEDS: ACETAMINOPHEN 500 MG TABLET PO (14:48)
[2018-01-09] MEDS: CEFEPIME HCL IV Push 1 GM VIAL. IVP ×2 (14:49→21:00)
[2018-01-09] MEDS ORDERED: HYDROcodone/APAP 7.5/325MG 1 TAB TABLET PO (15:30)
[2018-01-09] MEDS ORDERED: CEFEPIME HCL 1 GM in IV DEXTROSE 5% 50 ML IV (21:00)
[2018-01-09] MEDS: HYDROcodone/APAP 7.5/325MG 1 TAB TABLET PO (22:58)
[2018-01-10 05:20] LABS: HEMATOCRIT 21.4 % (39.0-53.0); HEMOGLOBIN 7.1 g/dL (13.0-17.5); MEAN CORPUSCULAR HEMOGLOBIN 29 pg (25-35); MEAN CORPUSCULAR HGB CONC 33 g/dL (31-37); MEAN CORPUSCULAR VOLUME 88 fL (79-100); PLATELET COUNT 367 x10^3/uL (140-400); RED BLOOD COUNT 2.44 x10^6/uL (4.30-5.70); RED CELL DISTRIBUTION WIDTH 15.2 % (11.5-14.5); WHITE BLOOD COUNT 9.5 x10^3/uL (4.0-11.0)
[2018-01-10 05:46] LABS: ALBUMIN/GLOBULIN RATIO 0.5 (1.0-1.7); ALK PHOS 92 U/L (46-116); ALT (SGPT) 11 U/L (16-63); ANION GAP 8 (6-14); AST (SGOT) 22 U/L (15-37); BLOOD UREA NITROGEN 25 mg/dL (8-26); BUN/CREATININE RATIO 14 (6-20); CALCIUM 8.1 mg/dL (8.5-10.1); CARBON DIOXIDE 28 mmol/L (21-32); CHLORIDE 104 mmol/L (98-107); CREATININE 1.8 mg/dL (0.7-1.3); GFR 38.1; GLUCOSE 105 mg/dL (70-99); POTASSIUM 4.1 mmol/L (3.5-5.1); SODIUM 140 mmol/L (136-145); TOTAL BILIRUBIN 0.2 mg/dL (0.2-1.0); TOTAL PROTEIN 5.7 g/dL (6.4-8.2)
[2018-01-10] MEDS: ONDANSETRON ODT 4 MG TAB.RAPDIS. PO ×3 (06:10→21:56)
[2018-01-10] MEDS: METOPROLOL SUCC 24HR ER 25 MG TAB.ER.24H. PO ×2 (08:09→08:39)
[2018-01-10] MEDS: ATORVASTATIN CALCIUM 20 MG TABLET PO (08:39)
[2018-01-10] MEDS: MAGNESIUM OXIDE 400 MG TABLET PO (08:39)
[2018-01-10] MEDS: GABAPENTIN 300 MG CAPSULE. PO ×3 (08:39→20:31)
[2018-01-10] MEDS: CEFEPIME HCL IV Push 1 GM VIAL. IVP ×2 (08:40→20:32)
[2018-01-10] MEDS: HYDROcodone/APAP 7.5/325MG 1 TAB TABLET PO ×2 (14:00→20:46)
[2018-01-10 17:40] LABS: RETIC COUNT 0.8 % (0.5-2.5)
[2018-01-10 18:00] LABS: % SAT IRON 9 % (15-34); IRON,SERUM 15 ug/dL (65-175)
[2018-01-10 18:13] LABS: FERRITIN 155 ng/mL (26-388)
[2018-01-10 20:45] LABS: VITAMIN-B12 548 pg/mL (247-911)
[2018-01-10 20:45] LABS: FOLATE 2.33 ng/ml (3.2-20.0)
[2018-01-11] MEDS: ONDANSETRON ODT 4 MG TAB.RAPDIS. PO ×3 (06:16→21:13)
[2018-01-11] MEDS: MAGNESIUM OXIDE 400 MG TABLET PO (08:01)
[2018-01-11] MEDS: GABAPENTIN 300 MG CAPSULE. PO ×3 (08:02→21:12)
[2018-01-11] MEDS: METOPROLOL SUCC 24HR ER 25 MG TAB.ER.24H. PO (08:02)
[2018-01-11] MEDS: ATORVASTATIN CALCIUM 20 MG TABLET PO (08:02)
[2018-01-11] MEDS: CEFEPIME HCL IV Push 1 GM VIAL. IVP ×2 (08:03→21:12)
[2018-01-11] MEDS: FOLIC ACID 1 MG TABLET. PO (09:28)
[2018-01-11] MEDS: IRON SUCROSE COMPLEX 500 MG in IV NORMAL SALINE 250ML 250 ML IV (09:29)
[2018-01-11] MEDS ORDERED: MORPHINE SULFATE 4 MG/ML DISP.SYRIN. IV (11:30)
[2018-01-11] MEDS ORDERED: ONDANSETRON PF 4 MG/2 ML VIAL. IV (11:30)
[2018-01-11] MEDS ORDERED: ONDANSETRON ODT 4 MG TAB.RAPDIS. PO (11:30)
[2018-01-11] MEDS: HYDROcodone/APAP 7.5/325MG 1 TAB TABLET PO (21:23)
[2018-01-12 04:29] LABS: HEMATOCRIT 22.6 % (39.0-53.0); HEMOGLOBIN 7.7 g/dL (13.0-17.5); MEAN CORPUSCULAR HGB CONC 34 g/dL (31-37)
[2018-01-12] MEDS: ONDANSETRON ODT 4 MG TAB.RAPDIS. PO ×3 (05:21→20:25)
[2018-01-12] MEDS: ATORVASTATIN CALCIUM 20 MG TABLET PO (09:10)
[2018-01-12] MEDS: MAGNESIUM OXIDE 400 MG TABLET PO (09:10)
[2018-01-12] MEDS: GABAPENTIN 300 MG CAPSULE. PO ×3 (09:11→20:25)
[2018-01-12] MEDS: METOPROLOL SUCC 24HR ER 25 MG TAB.ER.24H. PO (09:11)
[2018-01-12] MEDS: FOLIC ACID 1 MG TABLET. PO (09:11)
[2018-01-12] MEDS: CEFEPIME HCL IV Push 1 GM VIAL. IVP ×2 (09:14→20:25)
[2018-01-12 11:13] LABS: CEA 8.7 ng/mL (0.0-4.7)
[2018-01-12] MEDS: HYDROcodone/APAP 7.5/325MG 1 TAB TABLET PO (20:29)
[2018-01-13] MEDS: ONDANSETRON ODT 4 MG TAB.RAPDIS. PO ×4 (05:45→20:32)
[2018-01-13 06:28] LABS: ANION GAP 4 (6-14); BLOOD UREA NITROGEN 19 mg/dL (8-26); CALCIUM 7.6 mg/dL (8.5-10.1); CARBON DIOXIDE 31 mmol/L (21-32); CHLORIDE 103 mmol/L (98-107); CREATININE 1.5 mg/dL (0.7-1.3); GLUCOSE 97 mg/dL (70-99); POTASSIUM 3.8 mmol/L (3.5-5.1); SODIUM 138 mmol/L (136-145)
[2018-01-13] MEDS: ATORVASTATIN CALCIUM 20 MG TABLET PO (08:15)
[2018-01-13] MEDS: MAGNESIUM OXIDE 400 MG TABLET PO (08:15)
[2018-01-13] MEDS: FOLIC ACID 1 MG TABLET. PO (08:15)
[2018-01-13] MEDS: GABAPENTIN 300 MG CAPSULE. PO ×3 (08:15→20:32)
[2018-01-13] MEDS: METOPROLOL SUCC 24HR ER 25 MG TAB.ER.24H. PO (08:15)
[2018-01-13] MEDS: CEFEPIME HCL IV Push 1 GM VIAL. IVP (08:42)
[2018-01-13] MEDS: CEFPODOXIME PROXETIL 100 MG TABLET. PO (20:32)
[2018-01-14 04:32] LABS: HEMATOCRIT 22.3 % (39.0-53.0); HEMOGLOBIN 7.7 g/dL (13.0-17.5); MEAN CORPUSCULAR HEMOGLOBIN 30 pg (25-35); MEAN CORPUSCULAR HGB CONC 35 g/dL (31-37); MEAN CORPUSCULAR VOLUME 88 fL (79-100); PLATELET COUNT 386 x10^3/uL (140-400); RED BLOOD COUNT 2.55 x10^6/uL (4.30-5.70); RED CELL DISTRIBUTION WIDTH 15.4 % (11.5-14.5); WHITE BLOOD COUNT 8.3 x10^3/uL (4.0-11.0)
[2018-01-14 04:45] LABS: CALCIUM 7.6 mg/dL (8.5-10.1); GLUCOSE 113 mg/dL (70-99)
[2018-01-14 04:46] LABS: ANION GAP 6 (6-14); BLOOD UREA NITROGEN 15 mg/dL (8-26); CARBON DIOXIDE 31 mmol/L (21-32); CHLORIDE 104 mmol/L (98-107); CREATININE 1.2 mg/dL (0.7-1.3); GFR 60.8; POTASSIUM 3.7 mmol/L (3.5-5.1); SODIUM 141 mmol/L (136-145)
[2018-01-14] MEDS: ONDANSETRON ODT 4 MG TAB.RAPDIS. PO ×2 (05:40→14:00)
[2018-01-14] MEDS: CEFPODOXIME PROXETIL 100 MG TABLET. PO (08:20)
[2018-01-14] MEDS: MAGNESIUM OXIDE 400 MG TABLET PO (08:20)
[2018-01-14] MEDS: FOLIC ACID 1 MG TABLET. PO (08:21)
[2018-01-14] MEDS: METOPROLOL SUCC 24HR ER 25 MG TAB.ER.24H. PO (08:21)
[2018-01-14] MEDS: ATORVASTATIN CALCIUM 20 MG TABLET PO (08:21)
[2018-01-14] MEDS: GABAPENTIN 300 MG CAPSULE. PO ×2 (08:22→13:50)
== END 2018-01-14 14:00 | disposition home or self-care (01) | DRG 669 ==
LOC: ER 11:43 → 5 NORTH 14:14
PROVIDERS: Internal Medicine
PROC: 0TBB8ZX Excision of Bladder, Via Natural or Artificial Opening Endoscopic, Diagnostic (ICD-10-PCS; principal; 2018-01-08 15:00)
PROC: 0T5B8ZZ Destruction of Bladder, Via Natural or Artificial Opening Endoscopic (ICD-10-PCS; 2018-01-08 15:00)
PROC: 0TCB8ZZ Extirpation of Matter from Bladder, Via Natural or Artificial Opening Endoscopic (ICD-10-PCS; 2018-01-08 15:00)
PROC: 0T9430Z Drainage of Left Kidney Pelvis with Drainage Device, Percutaneous Approach (ICD-10-PCS; 2018-01-08 15:10)
PROC: 0T9030Z Drainage of Right Kidney with Drainage Device, Percutaneous Approach (ICD-10-PCS; 2018-01-08 15:10)
PROC: 30233N1 Transfusion of Nonautologous Red Blood Cells into Peripheral Vein, Percutaneous Approach (ICD-10-PCS; 2018-01-08 15:10)
DX: N30.41 Irradiation cystitis with hematuria (principal); C20 Malignant neoplasm of rectum; E44.0 Moderate protein-calorie malnutrition; I13.0 Hypertensive heart and chronic kidney disease with heart failure and stage 1 through stage 4 chronic kidney disease, or unspecified chronic kidney disease; N13.30 Unspecified hydronephrosis; G62.9 Polyneuropathy, unspecified; I50.9 Heart failure, unspecified; I42.9 Cardiomyopathy, unspecified; D49.4 Neoplasm of unspecified behavior of bladder; D64.9 Anemia, unspecified; D72.829 Elevated white blood cell count, unspecified; E61.1 Iron deficiency; E78.5 Hyperlipidemia, unspecified; I25.10 Atherosclerotic heart disease of native coronary artery without angina pectoris; I25.2 Old myocardial infarction; N18.3 Chronic kidney disease, stage 3 (moderate); Z79.82 Long term (current) use of aspirin; Z87.891 Personal history of nicotine dependence; Z90.49 Acquired absence of other specified parts of digestive tract; Z92.21 Personal history of antineoplastic chemotherapy; Z93.3 Colostomy status; Z93.6 Other artificial openings of urinary tract status; Z95.5 Presence of coronary angioplasty implant and graft; F32.9 Major depressive disorder, single episode, unspecified; F41.9 Anxiety disorder, unspecified; Z88.0 Allergy status to penicillin; Z88.8 Allergy status to other drugs, medicaments and biological substances
CPT/HCPCS: 36415; 50432; 71046; 74176; 76942; 80048; 80053; 81001; 82378; 82607; 82728; 82746; 83540; 83550; 84443; 84484; 85014; 85018; 85025; 85027; 85045; 85610; 85730; 86850; 86900; 86901; 86920; 87071; 87075; 87086; 87205; 87324; 93005; 96360; 97116-GP; 97161-GP; 97166-GO; 99152; 99153; 99291; 99291-25; A7015; C1713; C1729; C1892; J0692; J1100; J1756; J1956; J2250; J2370; J2405; J2704; J3010; J3490; J7030; J7050; P9016; Q0162; Q9966; Q9967; S0028

== ENCOUNTER 2018-01-29 08:36 | Outpatient (CLI) | payer MEDICARE ==
[2018-01-29] MEDS ORDERED: LIDOCAINE WITH 8.4% SOD BICARB 3 ML DISP.SYRIN. (09:36)
[2018-01-29] MEDS ORDERED: IOHEXOL 300 MG/ML 100ML VIAL. (09:36)
[2018-01-29 09:39] LABS: ADD MAN DIFF? NO
[2018-01-29 09:43] LABS: BASO % 0 % (0-3); EOS # 0.2 x10^3/uL (0.0-0.7); EOS % 5 % (0-3); HEMATOCRIT 25.2 % (39.0-53.0); HEMOGLOBIN 8.5 g/dL (13.0-17.5); LYMPH # 1.1 x10^3/uL (1.0-4.8); LYMPH % 26 % (24-48); MEAN CORPUSCULAR HEMOGLOBIN 30 pg (25-35); MEAN CORPUSCULAR HGB CONC 34 g/dL (31-37); MEAN CORPUSCULAR VOLUME 88 fL (79-100); MONO # 0.1 x10^3/uL (0.0-1.1); MONO % 3 % (0-9); NEUT # 2.7 x10^3uL (1.8-7.7); NEUT % 65 % (31-73); PLATELET COUNT 199 x10^3/uL (140-400); RED BLOOD COUNT 2.87 x10^6/uL (4.30-5.70); RED CELL DISTRIBUTION WIDTH 15.6 % (11.5-14.5); WHITE BLOOD COUNT 4.1 x10^3/uL (4.0-11.0)
[2018-01-29] MEDS ORDERED: CLINDAMYCIN 900MG PREMIX 50 ML IV (09:48)
[2018-01-29] MEDS ORDERED: MIDAZOLAM HCL/PF 2 MG/2 ML VIAL. (09:48)
[2018-01-29] MEDS ORDERED: fentaNYL PF VIAL 100 MCG/2 ML VIAL ×2 (09:48→11:49)
[2018-01-29 09:58] LABS: INR 1.3 (0.8-1.1); PARTIAL THROMBOPLASTIN TIME 32 SEC (24-38); PROTHROMBIN TIME PATIENT 15.2 SEC (11.7-14.0)
[2018-01-29] MEDS ORDERED: CONTRAST GIVEN MC (10:15)
[2018-01-29] MEDS: LIDOCAINE WITH 8.4% SOD BICARB 3 ML DISP.SYRIN. IJ (11:58)
[2018-01-29] MEDS: CLINDAMYCIN 900MG PREMIX 50 ML IV (11:58)
[2018-01-29] MEDS: IOHEXOL 300 MG/ML 100ML VIAL. IART (11:58)
[2018-01-29] MEDS: fentaNYL PF VIAL 100 MCG/2 ML VIAL IV (12:00)
[2018-01-29] MEDS: MIDAZOLAM HCL/PF 2 MG/2 ML VIAL. IV (12:00)
== END 2018-01-29 13:40 | disposition home or self-care (01) ==
LOC: INTRAD 08:36
DX: Z46.6 Encounter for fitting and adjustment of urinary device (principal); Z88.0 Allergy status to penicillin; G40.909 Epilepsy, unspecified, not intractable, without status epilepticus; G62.9 Polyneuropathy, unspecified; I50.9 Heart failure, unspecified; I42.9 Cardiomyopathy, unspecified; I25.10 Atherosclerotic heart disease of native coronary artery without angina pectoris; Z95.5 Presence of coronary angioplasty implant and graft; E78.00 Pure hypercholesterolemia, unspecified; Z90.49 Acquired absence of other specified parts of digestive tract; Z85.038 Personal history of other malignant neoplasm of large intestine; Z87.891 Personal history of nicotine dependence; Z98.890 Other specified postprocedural states; Z82.0 Family history of epilepsy and other diseases of the nervous system
CPT/HCPCS: 36415; 50431; 50435; 76000; 85025; 85610; 85730; 99152; 99153; C1713; C1729; C1769; C1894; J2250; J3010; J3490; Q9967

== ENCOUNTER 2018-03-08 08:08 | Outpatient (CLI) | payer MEDICARE ==
[2018-03-08 08:35] LABS: ADD MAN DIFF? NO
[2018-03-08 08:37] LABS: BASO # 0.2 x10^3/uL (0.0-0.2); BASO % 1 % (0-3); EOS # 0.4 x10^3/uL (0.0-0.7); EOS % 4 % (0-3); HEMATOCRIT 28.7 % (39.0-53.0); HEMOGLOBIN 9.3 g/dL (13.0-17.5); LYMPH # 2.3 x10^3/uL (1.0-4.8); LYMPH % 18 % (24-48); MEAN CORPUSCULAR HEMOGLOBIN 28 pg (25-35); MEAN CORPUSCULAR HGB CONC 32 g/dL (31-37); MEAN CORPUSCULAR VOLUME 88 fL (79-100); MONO % 8 % (0-9); NEUT # 8.7 x10^3uL (1.8-7.7); NEUT % 69 % (31-73); PLATELET COUNT 491 x10^3/uL (140-400); RED BLOOD COUNT 3.28 x10^6/uL (4.30-5.70); RED CELL DISTRIBUTION WIDTH 16.4 % (11.5-14.5); WHITE BLOOD COUNT 12.6 x10^3/uL (4.0-11.0)
[2018-03-08 08:56] LABS: INR 1.2 (0.8-1.1); PROTHROMBIN TIME PATIENT 14.3 SEC (11.7-14.0)
[2018-03-08] MEDS ORDERED: LIDOCAINE 1%/EPI 1:100,000 20 ML VIAL. (09:42)
[2018-03-08] MEDS ORDERED: HEPARIN PF 500 UNIT/5 ML DISP.SYRIN. IV (09:43)
[2018-03-08] MEDS ORDERED: fentaNYL PF VIAL 100 MCG/2 ML VIAL (10:16)
[2018-03-08] MEDS ORDERED: MIDAZOLAM HCL/PF 2 MG/2 ML VIAL. (10:16)
[2018-03-08] MEDS ORDERED: VANCOMYCIN 1GM IVPB FOR OMNI 250 ML (10:16)
[2018-03-08] MEDS: VANCOMYCIN 1GM IVPB FOR OMNI 250 ML IV (10:48)
[2018-03-08] MEDS: LIDOCAINE 1%/EPI 1:100,000 20 ML VIAL. IJ (10:49)
[2018-03-08] MEDS: fentaNYL PF VIAL 100 MCG/2 ML VIAL IV (10:49)
[2018-03-08] MEDS: MIDAZOLAM HCL/PF 2 MG/2 ML VIAL. IV (10:50)
[2018-03-08] MEDS: HEPARIN PF 500 UNIT/5 ML DISP.SYRIN. IV (10:53)
== END 2018-03-08 13:30 | disposition home or self-care (01) ==
LOC: INTRAD 08:08
DX: C20 Malignant neoplasm of rectum (principal); Z79.01 Long term (current) use of anticoagulants; E78.00 Pure hypercholesterolemia, unspecified; Z90.49 Acquired absence of other specified parts of digestive tract; Z88.0 Allergy status to penicillin; Z88.8 Allergy status to other drugs, medicaments and biological substances; G40.909 Epilepsy, unspecified, not intractable, without status epilepticus; G62.9 Polyneuropathy, unspecified; I25.10 Atherosclerotic heart disease of native coronary artery without angina pectoris; I42.9 Cardiomyopathy, unspecified; Z95.5 Presence of coronary angioplasty implant and graft; Z98.890 Other specified postprocedural states; Z85.038 Personal history of other malignant neoplasm of large intestine; Z87.891 Personal history of nicotine dependence; Z82.0 Family history of epilepsy and other diseases of the nervous system; Z80.59 Family history of malignant neoplasm of other urinary tract organ; Z79.82 Long term (current) use of aspirin; Z79.899 Other long term (current) drug therapy
CPT/HCPCS: 36415; 36561; 76937; 77001; 85025; 85610; 99152; 99153; C1751; C1769; C1788; C1892; J2250; J3010; J3370; J3490

== ENCOUNTER → 2018-05-08 | Outpatient (CLI) | payer MEDICARE ==
[2018-04-06 10:51] VITALS: BP 108/58
[~2018-05-08] MED LIST changes: +ACET500T68 PO; +ASPI81TA50 PO; +BENZ100C PO; +CALC600T4 PO; +CEFP100T PO; -CONTRAST GIVEN MC PRN; +CONTRAST GIVEN. MC PRN; +CYAN10005 PO; +DOCU100C28 PO; +FERR325T14 PO; +GABA-586 PO; +HYDR-2758 PO; -IOHEXOL 300 MG/ML 75 ML VIAL IV ONE; +IRON 27 MG PO; +ISOS20TA2 PO; +MAGN400C PO; +MAGNESIUM 250 MG PO; +MIRT15TA3 PO; +MORP30TA83 PO; +NITR0.4T SL; +OMEP20CA9 PO; +OXYB5TAB7 PO; +OXYC5TAB95 PO
--- NOTE | 2018-05-08 14:15 | RAD ---
CT of the chest, abdomen and pelvis without contrast, 05/08/2018: History: Follow-up rectal and lung cancer Multidetector CT imaging was performed following oral administration of GI tract contrast. No IV contrast was administered for this study. Comparison is made to a study from 10/12/2017. A right Port-A-Cath extends to the level of the atriocaval junction. There is mild calcific plaquing of the aorta. Moderate coronary artery calcifications are present. Several small mediastinal lymph nodes are seen without evidence of pathologic enlargement. A subcarinal lymph node is at the upper limits of normal in size measuring 10 mm in short axis dimension. No pulmonary mass or significant infiltrate is seen. There is minimal linear scarring or atelectasis in the left base. There is no evidence of pleural fluid. The abdomen and pelvis images are compared to an exam from 01/08/2018. The unopacified liver is unremarkable. Gallstones are again identified in the gallbladder. No gallbladder wall thickening or pericholecystic edema is seen. The pancreas is unremarkable. The spleen is of normal size. Bilateral percutaneous gastrostomy tubes have been placed relieving the previously seen bilateral hydronephrosis. There is mild right renal atrophy. There is a stable small left adrenal nodule. Its low internal CT number favors a benign adenoma. Moderate aortoiliac calcific plaquing is present without evidence of aneurysm. No periaortic or mesenteric adenopathy is seen. There is a large presacral soft tissue mass which cannot be clearly from the nondistended urinary bladder. At the presacral level this mass measures approximately 10 cm in width, similar to that seen on the previous exam. In the sagittal plane this overall process measures 13.6 cm in craniocaudad extent as measured obliquely, compared to 12 cm on the previous study. It appears to have increased in size, although comparison is difficult due to lack of separation of this mass from the bladder. There is cortical destruction and erosion involving the sacrum near the midline which has progressed since the 01/08/2018 exam. A colostomy is present in the left lower quadrant. The bowel loops are not dilated. No free air or free fluid is evident in the abdomen or pelvis. IMPRESSION: 1. The large presacral rectal neoplasm cannot be clearly from the urinary bladder and appears to have increased in size since 01/08/2018. There is increasing associated sacral destruction/erosion. 2. Bilateral percutaneous nephrostomy tubes have been placed with interval resolution of the previously seen hydronephrosis. 3. Cholelithiasis. 4. No additional CT evidence of distant metastatic disease. PQRS Compliance Statement: One or more of the following individualized dose reduction techniques were utilized for this examination: 1. Automated exposure control 2. Adjustment of the mA and/or kV according to patient size 3. Use of iterative reconstruction technique
== END | disposition home or self-care (01) ==
LOC: CT 09:21
PROVIDERS: ATTEND Internal Medicine Hematology & Oncology
DX: K80.20 Calculus of gallbladder without cholecystitis without obstruction (principal); N26.1 Atrophy of kidney (terminal); I13.0 Hypertensive heart and chronic kidney disease with heart failure and stage 1 through stage 4 chronic kidney disease, or unspecified chronic kidney disease; I50.33 Acute on chronic diastolic (congestive) heart failure; N18.3 Chronic kidney disease, stage 3 (moderate); K21.9 Gastro-esophageal reflux disease without esophagitis; I25.10 Atherosclerotic heart disease of native coronary artery without angina pectoris; E83.51 Hypocalcemia; E78.00 Pure hypercholesterolemia, unspecified; E78.2 Mixed hyperlipidemia; E83.42 Hypomagnesemia; I25.2 Old myocardial infarction; Z90.49 Acquired absence of other specified parts of digestive tract; Z87.891 Personal history of nicotine dependence; Z85.038 Personal history of other malignant neoplasm of large intestine; Z92.3 Personal history of irradiation; Z85.048 Personal history of other malignant neoplasm of rectum, rectosigmoid junction, and anus; Z86.2 Personal history of diseases of the blood and blood-forming organs and certain disorders involving the immune mechanism; Z80.59 Family history of malignant neoplasm of other urinary tract organ; Z80.42 Family history of malignant neoplasm of prostate; Z80.49 Family history of malignant neoplasm of other genital organs; Z80.0 Family history of malignant neoplasm of digestive organs; Z82.0 Family history of epilepsy and other diseases of the nervous system; Z84.1 Family history of disorders of kidney and ureter; Z81.1 Family history of alcohol abuse and dependence
CPT/HCPCS: 71250; 74176; Q9966

== ENCOUNTER 2018-06-14 08:55 | Outpatient (CLI) | payer MEDICARE ==
[~2018-06-14] VITALS: Ht 170.2 cm; Wt 63.5 kg
[~2018-06-14 08:55] MED LIST changes: -CONTRAST GIVEN. MC PRN; -IOHEXOL 240 MG/ML 50ML VIAL. PO ONE
[2018-06-14 09:15] VITALS: BP 128/65
[2018-06-14 09:37] LABS: BASO % 1 % (0-3); EOS # 1.4 x10^3/uL (0.0-0.7); EOS % 15 % (0-3); HEMATOCRIT 25.9 % (39.0-53.0); HEMOGLOBIN 8.3 g/dL (13.0-17.5); LYMPH % 21 % (24-48); MEAN CORPUSCULAR HEMOGLOBIN 28 pg (25-35); MEAN CORPUSCULAR HGB CONC 32 g/dL (31-37); MEAN CORPUSCULAR VOLUME 89 fL (79-100); MONO # 0.7 x10^3/uL (0.0-1.1); MONO % 7 % (0-9); NEUT # 5.4 x10^3uL (1.8-7.7); NEUT % 57 % (31-73); PLATELET COUNT 345 x10^3/uL (140-400); RED BLOOD COUNT 2.92 x10^6/uL (4.30-5.70); RED CELL DISTRIBUTION WIDTH 18.8 % (11.5-14.5); WHITE BLOOD COUNT 9.5 x10^3/uL (4.0-11.0)
[2018-06-14] MEDS ORDERED: LIDOCAINE WITH 8.4% SOD BICARB 3 ML DISP.SYRIN. ONE (09:50)
[2018-06-14] MEDS ORDERED: IOHEXOL 240 MG/ML 50ML VIAL. ONE (09:50)
[2018-06-14 09:55] LABS: PROTHROMBIN TIME PATIENT 15.7 SEC (11.7-14.0)
[2018-06-14] MEDS ORDERED: ASPI-630 PO (09:55)
[2018-06-14] MEDS ORDERED: MAGN400C PO (09:55)
[2018-06-14] MEDS ORDERED: HYDR-2758 PO (09:55)
[2018-06-14] MEDS ORDERED: MIDAZOLAM HCL/PF 2 MG/2 ML VIAL. ONE (10:11)
[2018-06-14] MEDS ORDERED: VANCOMYCIN 1GM IVPB FOR OMNI 250 ML ONE (10:11)
[2018-06-14] MEDS ORDERED: fentaNYL PF VIAL 100 MCG/2 ML VIAL ONE (10:11)
[2018-06-14] MEDS ORDERED: HEPARIN PF 500 UNIT/5 ML DISP.SYRIN. IV ONE (10:12)
[2018-06-14 10:42] VITALS: BP 119/63
[2018-06-14] MEDS ORDERED: LIDOCAINE WITH 8.4% SOD BICARB 3 ML DISP.SYRIN. IJ ONE (10:45)
[2018-06-14] MEDS ORDERED: VANCOMYCIN 1GM IVPB FOR OMNI 250 ML IV ONE (10:45)
[2018-06-14] MEDS ORDERED: MIDAZOLAM HCL/PF 2 MG/2 ML VIAL. IV ONE (10:45)
[2018-06-14] MEDS ORDERED: fentaNYL PF VIAL 100 MCG/2 ML VIAL IV ONE (10:45)
[2018-06-14] MEDS ORDERED: IOHEXOL 240 MG/ML 50ML VIAL. IJ ONE (10:45)
[2018-06-14 10:56] VITALS: BP 123/63
[2018-06-14 11:30] VITALS: BP 131/66
--- NOTE | 2018-06-14 12:57 | RAD ---
Routine exchange of bilateral nephrostomy tubes 06/14/2018 Indication: Routine exchanged, every 3 months Discussion: The risks and benefits of the procedure were discussed the patient. Informed consent was obtained. Patient was placed in the prone position on the fluoroscopy table. The posterior abdomen was prepped and draped using sterile barrier technique. This includes pre-existing bilateral percutaneous nephrostomy tubes. Fluoroscopic evaluation demonstrates the tube to be well positioned. Contrast was administered through each tube confirming appropriate placement. Pre-existing tubes were removed over Bentson wires a replacement 10 Hungarian locking pigtail drainage catheters. The catheters flush and aspirate normally. The position was confirmed with contrast fluoroscopy. The catheter was secured in place and sterile dressings were applied. No immediate complications were identified. Total fluoroscopy time: 2.9 MIN Dose area product: 2 Gycm2 The procedures performed under conscious sedation including continuous cardiopulmonary monitoring via a dedicated sedation nurse. [id number] sedation time: 15 minutes Impression: Routine exchange of bilateral nephrostomy tubes. Patient should return every 3 months for routine exchange
[2018-06-14 13:14] LABS: % BANDS 1 % (0-9); % EOS 13 % (0-5); % LYMPHS 17 % (24-48); % MONOS 5 % (0-10); % SEGS 64 % (35-66); PLT ESTIMATE ADEQUATE (ADEQUATE)
[2018-06-14 13:15] LABS: ANISOCYTOSIS PRESENT
== END 2018-06-14 11:57 | disposition home or self-care (01) ==
LOC: INTRAD 08:55
PROVIDERS: ATTEND Urology
DX: Z46.6 Encounter for fitting and adjustment of urinary device (principal); N13.39 Other hydronephrosis; Z88.0 Allergy status to penicillin; Z91.011 Allergy to milk products; I10 Essential (primary) hypertension; F17.200 Nicotine dependence, unspecified, uncomplicated; Z79.01 Long term (current) use of anticoagulants; Z79.899 Other long term (current) drug therapy
CPT/HCPCS: 36415; 50435; 85025; 85610; 99152; C1729; C1769; J2250; J3010; Q9966; 85007; 99153